=== PATIENT | male | born 1995 | race Caucasian/White ===

== ENCOUNTER 2019-11-13 07:47 | Emergency (ER) | payer SELFPAY ==
[~2019-11-13] VITALS: Ht 165.1 cm; Wt 52.0 kg
[2019-11-13 08:46] VITALS: BP 122/81
== END 2019-11-13 08:48 | disposition home or self-care (01) ==
LOC: ER 07:54
DX: S60.414A Abrasion of right ring finger, initial encounter (principal); X58.XXXA Exposure to other specified factors, initial encounter; Y93.89 Activity, other specified; Y92.9 Unspecified place or not applicable
CPT/HCPCS: 99283